=== PATIENT | female | born 1965 | race Caucasian/White ===

== ENCOUNTER 2023-07-17 05:01 | Emergency (ER) | payer OTHER, SELFPAY ==
[2023-07-17 05:12] VITALS: BP 158/68; PULSE 78; RESP 16; TEMP 36.4; O2SAT 96; BMI 24.6
[2023-07-17 06:27] VITALS: PULSE 76; RESP 16; O2SAT 98
--- NOTE | 2023-07-17 06:28 | PC.NURSE ---
pt awaiting primary eval by ed provider. resp even and unlabored sats 98% ra. airway patent. daughter at bedside. call sánchez within reach.
--- NOTE | 2023-07-17 06:58 | ED.ALLEREA ---
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 took benadryl without relief. no diff breathing swallowing or other symptoms. Has never had this before. No other new exposures. MD complaint: allergic reaction and hives Onset (ago): day(s) (yesterday ) Exposure: food and cleaning product exposure Symptoms: rash and itching Severity: moderate Treatment prior to arrival: benadryl Previous Allergic Reaction History: none Related Data Previous Rx's Medication Instructions Recorded famotidine 20 mg tablet (Pepcid AC) 20 mg PO DAILY #10 tabs 07/17/23 hydrocortisone 1 % topical cream 1 appl topical TID PRN itching 07/17/23 (Cortisone (hydrocortisone)) #28.35 grams loratadine 10 mg tablet (Claritin) 10 mg PO DAILY #14 tabs 07/17/23 prednisone 20 mg tablet 40 mg (2 x 20 mg) PO DAILY 4 days 07/17/23 #8 tabs Allergies Allergy/AdvReac Type Severity Reaction Status Date / Time No Known Allergies Allergy Unverified 05/17/20 15:55 [No Known Allergies*] Review of Systems Review of Systems: Constitutional : No Fever, No Chills ENT/Mouth : no oral swelling, No Hoarseness, No Swallowing Difficulty Eyes: No Eye Pain, No Swelling, No Redness Cardiovascular : No Chest Pain, No SOB Respiratory : No Cough, No Sputum, No Wheezing, No Smoke Exposure, No Dyspnea Gastrointestinal : No Nausea, No Vomiting, No Diarrhea, No abdominal Pain Genitourinary : No Dysuria, No Urinary Frequency, No Hematuria Musculoskeletal : No joint pain, No Myalgias, No Joint Swelling Skin : No Skin Lesions, positive rash Neuro : No Weakness, No Numbness, No Headache Psych : No Anxiety/Panic, No Depression All other systems reviewed and are negative PMFSH Past Medical History Attestation statement: The following information was validated with the patient. Medical History HTN (hypertension) Social History Social History (Updated 07/17/23 @ 07:38 by Daphne Pino DO) Patient Tobacco Use Status: Tobacco use Unknown Physical Exam ED Vital Signs: Vital Signs - 24 hr 07/17/23 05:12 07/17/23 06:27 Temperature 97.5 F Pulse Rate 78 76 Respiratory Rate 16 16 Blood Pressure 158/68 H Pulse Oximetry 96 98 Oxygen Delivery Method Room Air Room Air BMI result Body Mass Index 24.6 Appearance: Alert. Oriented X3. No acute distress. Eyes: Pupils equal, round and reactive to light. ENT: Pharynx normal. Neck: Normal inspection. Neck supple. CVS: Normal heart rate and rhythm. Pulses normal. Respiratory: No respiratory distress. Breath sounds normal. no stridor Abdomen: Soft and nontender. Skin: Skin warm and dry. Normal skin color. Hives noted inner thighs, both shoulders, both hands are swollen and boggy but not hot to touch or infected - asked her to remove rings which she did. no drainage Extremities: No lower extremity edema. Neuro: Oriented X 3. No motor deficit. No sensory deficit. Medical Decision Making Medical Decision Making [facility] Narrative: 58 yo female with hx of HTN here with diffuse hives but no oral or airway issues at this time not toxic will start on prednisone, claritin, topical therapy, pepcid and give reasons to return - at this time stable for DC. Differential Diagnosis Differential Diagnoses: The differential diagnosis associated with the presentation includes hvies, allergy Admission/Observation Consideration of admission/observation: Escalation of care including admission/observation considered > 12 hours of symptoms can be managed as outpatient Lab Data [facility] Lab Attestation statement: I reviewed the patient's lab results. Independent Historian Clinical information obtained from an independent historian. History obtained from or confirmed by: Other (daughter) Prescription Management I considered prescription management with: Other Discharge Plan Discharge Clinical Impression: Allergic reaction Qualifiers: Encounter type: initial encounter Qualified Code(s): T78.40XA - Allergy, unspecified, initial encounter Patient Disposition: Home, Self-Care Instructions: General Allergic Reaction (ED) Additional Instructions: avoid laron tea and that cleaning spray. do not take benadryl only the medications prescribed. return for any worsening redness or swelling, difficulty breathing or oral swelling Prescriptions: New prednisone 20 mg tablet 40 mg PO DAILY 4 Days Qty: 8 0RF loratadine [Claritin] 10 mg tablet 10 mg PO DAILY Qty: 14 0RF famotidine [Pepcid AC] 20 mg tablet 20 mg PO DAILY Qty: 10 0RF hydrocortisone [Cortisone (hydrocortisone)] 1 % cream 1 appl topical TID PRN (Reason: itching) Qty: 28.35 0RF
[2023-07-17] MEDS: predniSONE 20 MG TABLET 40 MG PO (07:22)
[2023-07-17] MEDS: Famotidine 20 MG TABLET PO (07:22)
[2023-07-17] MEDS: Loratadine 10 MG TABLET PO (07:22)
== END 2023-07-17 07:53 | disposition home or self-care (01) ==
PROVIDERS: Emergency Provider Emergency Medicine
DX: L50.0 Allergic urticaria (principal)
CPT/HCPCS: 99283